=== PATIENT | female | born 2000 | race Caucasian/White ===

== ENCOUNTER 2023-06-17 09:32 | Day surgery (SDC) | payer OTHER ==
[2023-06-16 08:56] VITALS: BMI 23.5
[2023-06-17] MEDS ORDERED: Sevoflurane 250 ML INH ANEST BOTTLE ONE ×2 (10:01→10:02)
[2023-06-17] MEDS ORDERED: PROPOFOL 20 ML ONE (10:05)
[2023-06-17] MEDS ORDERED: Lidocaine 1% PF 5 ML VIAL ONE ×2 (10:05→12:00)
[2023-06-17] MEDS ORDERED: Heparin 5,000 UNITS/ML VIAL ONE (10:06)
[2023-06-17] MEDS ORDERED: Lidocaine 1% MPF 2 ML VIAL ONE (10:06)
[2023-06-17] MEDS ORDERED: Vancomycin 1 GM VIAL ONE (10:18)
[2023-06-17] MEDS ORDERED: Bupivacaine 0.25% HCL 30 ML VIAL ONE ×2 (10:18→10:22)
[2023-06-17] MEDS ORDERED: EPINEPHrine 1 MG/ML VIAL ONE (10:18)
[2023-06-17] MEDS ORDERED: Gentamicin 80 MG/2 ML VIAL ONE (10:18)
[2023-06-17] MEDS ORDERED: Lidocaine 1% (PF) 30 ML VIAL ONE (10:19)
[2023-06-17 10:55] LABS: BHCG - Serum Negative (NEGATIVE); Pregs Control Background? CLEAR/WHITE (CLR/WHITE); Pregs Control Bar Appear? YES (CONTROL BAR)
[2023-06-17] MEDS ORDERED: CEFAZOLIN 2 GM VIAL ONE (11:37)
[2023-06-17] MEDS ORDERED: Sodium Chloride 0.9% 100 ML ONE (11:38)
[2023-06-17] MEDS ORDERED: fentaNYL PF 100 MCG/2 ML SYRINGE ONE ×2 (11:44→11:53)
[2023-06-17] MEDS ORDERED: Ondansetron PF 4 MG/2 ML Vial ONE ×2 (12:00→12:47)
[2023-06-17] MEDS ORDERED: Metoclopramide HCl 10 MG/2 ML VIAL ONE ×2 (12:00→13:16)
[2023-06-17] MEDS ORDERED: ePHEDrine Sulfate 50 MG/10 ML VIAL ONE ×2 (12:00→12:13)
[2023-06-17] MEDS ORDERED: Dexamethasone 20 MG/5 ML VIAL ONE ×2 (12:00→12:47)
[2023-06-17] MEDS ORDERED: PROPOFOL 200 MG/20 ML VIAL ONE (12:00)
[2023-06-17] MEDS ORDERED: diphenhydrAMINE 50 MG/ML VIAL ONE ×2 (12:00→13:01)
[2023-06-17] MEDS ORDERED: Ketorolac Tromethamine 30 MG/ML VIAL ONE ×2 (12:00→15:02)
[2023-06-17] MEDS ORDERED: HYDROmorphone 2 MG/ML VIAL ONE (12:48)
== END 2023-06-17 17:17 | disposition home or self-care (01) ==
LOC: SDC 09:32
PROVIDERS: ATTEND Plastic Surgery
PROC: 0HBV0ZZ Excision of Bilateral Breast, Open Approach (ICD-10-PCS; principal; 2023-06-17)
DX: N60.82 Other benign mammary dysplasias of left breast (principal); N62 Hypertrophy of breast; F10.90 Alcohol use, unspecified, uncomplicated
CPT/HCPCS: 84703; 88305; J0171; J1100; J1170; J1200; J1580; J1644; J1885; J2001; J2405; J2704; J2765; J3370; J3490; S0020